=== PATIENT | female | born 1955 ===

== ENCOUNTER 2016-05-17 12:02 | Emergency (ER) | payer SELFPAY ==
[~2016-05-17] VITALS: Wt 70.4 kg
[2016-05-17] MEDS ORDERED: SOD CHLORIDE 0.9% 1,000 ML IV STA (13:18)
[2016-05-17] MEDS ORDERED: METOCLOPRAMIDE 10 MG INJ IV STA (13:18)
[2016-05-17] MEDS ORDERED: DIPHENHYDRAMINE 50 MG INJ IV STA (13:18)
[2016-05-17] MEDS ORDERED: DEXAMETHASONE 10 MG/ML 1 ML INJ IV ONE (13:30)
--- NOTE | 2016-05-17 14:12 | RADRPT ---
PROCEDURE: CT Brain without. CLINICAL INDICATION: Headache. TECHNIQUE: A CT of the brain was performed on multidetector high-resolution CT scanner utilizing a xial sections from the skull base through the vertex without contrast. The scan was reviewed in sof t tissue brain and high frequency resolution bone algorithm windows. Images were reviewed on a high -resolution PACS workstation. One or more the following does reduction techniques were utilized: Aut omated exposure control, adjustment of the mA/ or kV according to patient's size, or use of iterativ e reconstruction technique. The exam CTDI = 44.4 mGy and the DLP = 720.23 mGy-cm. COMPARISON: None available. FINDINGS: The ventricles and sulci are age-appropriate. There is no intracranial hemorrhage, mass effect or m idline shift. No abnormal intra-axial or extra-axial fluid collections are seen. The baca/white mat ter differentiation is preserved. There are minimal scattered foci of hypoattenuation in the white matter, which are nonspecific in et iology but likely reflect chronic small vessel ischemic changes. There are minimal intracranial vas cular calcifications consistent with atherosclerosis. The visualized paranasal sinuses are essential ly clear. IMPRESSION: 1. No acute intracranial hemorrhage, transcortical infarction or mass effect. 2. Minimal intracranial atherosclerosis and chronic small vessel ischemic changes. RPTAT: HH .Marlon Garcia MD, MD Date Time Electronically viewed and signed by .Marlon Garcia MD, MD on 05/17/2016 14:11 .N/
[2016-05-17] MEDS ORDERED: BENA20TA48 PO (14:19)
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
[2016-05-17] MEDS ORDERED: BUTA1CAP38 PO (14:38)
[2016-05-17 14:50] VITALS: BP 125/74; PULSE 79; RESP 18; TEMP 98.1
[2016-05-17] MEDS ORDERED: LORAZEPAM 1 MG TAB PO ONE (15:00)
== END 2016-05-17 14:58 | disposition home or self-care (01) ==
LOC: E/R 12:02
DX: R51 Headache (principal); I10 Essential (primary) hypertension; R40.2142 Coma scale, eyes open, spontaneous, at arrival to emergency department; R40.2252 Coma scale, best verbal response, oriented, at arrival to emergency department; R40.2362 Coma scale, best motor response, obeys commands, at arrival to emergency department
CPT/HCPCS: 70450; 96374; 96375; 99285; J1100; J1200; J2765; J7030